=== PATIENT | male | born 1935 | race Caucasian/White ===

== ENCOUNTER 2020-08-13 06:21 | Day surgery (SDC) | payer MEDICARE, BC ==
[2020-08-13] MEDS ORDERED: Rocuronium 50 MG/5 ML Vial IV ONE (06:22)
[2020-08-13] MEDS ORDERED: Propofol 200 MG/20 ML SDV IV ONE (06:22)
[2020-08-13] MEDS ORDERED: Ondansetron 4 MG/2 ML SDV IVPUSH ONE (06:22)
[2020-08-13] MEDS ORDERED: Sugammadex Sodium 200 MG/2 ML VIAL IV ONE (06:22)
[2020-08-13] MEDS ORDERED: Glycopyrrolate 0.2 MG/ML 5 ML MDV IV ONE (06:22)
[2020-08-13] MEDS ORDERED: Lactated Ringers 1,000 ML IV ONE (06:22)
[2020-08-13] MEDS ORDERED: Ketorolac 30 MG/ML SDV IVPUSH ONE (06:22)
[2020-08-13] MEDS ORDERED: Labetalol 100 MG/20 ML MDV IV ONE (06:22)
[2020-08-13] MEDS ORDERED: Succinylcholine 200 MG/10 ML MDV IV ONE (06:22)
[2020-08-13] MEDS ORDERED: Dexamethasone 4 MG/ML 5 ML MDV IVPUSH ONE (06:22)
[2020-08-13] MEDS ORDERED: Midazolam 1 MG/ML 2 ML SDV IV ONE (06:22)
[2020-08-13] MEDS ORDERED: fentaNYL 100 MCG/2 ML SDV IV ONE (06:22)
[2020-08-13] MEDS ORDERED: Lidocaine 2% 100 MG/5 ML Syringe IVPUSH ONE (06:22)
[2020-08-13] MEDS ORDERED: Acetaminophen 1,000 MG/100 ML Infusion Bottle Premix IV ONE (06:22)
[2020-08-13] MEDS ORDERED: Sodium Chloride 0.9% 10 ML Syringe FLUSH PRN (06:45)
[2020-08-13] MEDS ORDERED: Lactated Ringers 1,000 ML IV SCH (06:45)
[2020-08-13] MEDS ORDERED: ceFAZolin 1 GM Vial IVPUSH ONE (08:00)
[2020-08-13] MEDS ORDERED: ceFAZolin 1 GM in Sodium Chloride 0.9% 50 ML IV ONE (08:00)
--- NOTE | 2020-08-13 08:11 | PCM.PN ---
- General Info Date of Service: 08/13/20 - Review of Systems Systems Review Comment:: 85-year-old male here for cholecystectomy. He has history of symptomatic gallstones. He is medically stable to proceed today. His recent history and physical is reviewed and no significant changes are noted. I have again reviewed the proposed procedure with the patient. His questions were answered. He agrees to proceed accepting risks. - Patient Data Vitals - Most Recent: Last Vital Signs Temp 98.2 F 08/13/20 07:17 Pulse 74 08/13/20 07:17 Resp 16 08/13/20 07:17 BP 153/68 H 08/13/20 07:17 Pulse Ox 100 08/13/20 07:17 Weight - Most Recent: 146 lb Med Orders - Current: Current Medications Lactated Ringer's (Ringers, Lactated) 1,000 mls @ 125 mls/hr IV ASDIRECTED TAINA Last Admin: 08/13/20 07:50 Dose: 125 mls/hr Documented by: Sodium Chloride (Saline Flush) 10 ml FLUSH ASDIRECTED PRN PRN Reason: Keep Vein Open Discontinued Medications Cefazolin Sodium (Ancef) 1 gm IVPUSH ONETIME ONE Stop: 08/13/20 08:01 Last Admin: 08/13/20 07:54 Dose: 1 gm Documented by: Sepsis Event Note - Focused Exam Vital Signs: Vital Signs Temp Pulse Resp BP Pulse Ox 08/13/20 07:17 98.2 F 74 16 153/68 H 100 - Problem List Review Problem List Initiated/Reviewed/Updated: Yes - My Orders Last 24 Hours: My Active Orders 08/12/20 11:46 Resuscitation Status Routine 08/13/20 Breakfast Nothing Per Oral Diet [DIET] 08/13/20 06:45 Patient Status [ADT] Routine Patient to Empty Bladder [RC] ASDIRECTED RT Incentive Spirometry [RC] ASDIRECTED Verify Patient Consent Obtain [RC] ASDIRECTED Lactated Ringers [Ringers, Lactated] 1,000 ml IV ASDIRECTED Sodium Chloride 0.9% [Saline Flush] 10 ml FLUSH ASDIRECTED PRN Peripheral IV Insertion Adult [OM.PC] Routine Sequential Compression Device [OM.PC] Routine - Assessment Assessment:: Symptomatic cholelithiasis - Plan Plan:: Cholecystectomy
[2020-08-13] MEDS ORDERED: Bupivacaine 0.5%/EPINEPHrine 1:200,000 50 ML MDV INJECT ONE (08:25)
--- NOTE | 2020-08-13 09:31 | PCM.OPNOTE ---
- General Post-Op/Procedure Note Date of Surgery/Procedure: 08/13/20 Operative Procedure(s): Laparoscopic cholecystectomy Findings: Chronically inflamed gallbladder lower abdominal adhesion Pre Op Diagnosis: Symptomatic Cholelithiasis Post-Op Diagnosis: Same Anesthesia Technique: General ET Tube Primary Surgeon: David Jones Pathology: Gallbladder EBL in mLs: 20 Complications: None Condition: Good
[2020-08-13] MEDS ORDERED: Acetaminophen/HYDROcodone 325-10 MG Tab PO ONE (12:31)
--- NOTE | 2020-08-13 12:58 | OR ---
DATE OF OPERATION: 08/13/2020 SURGEON: David Jones MD PREOPERATIVE DIAGNOSIS: Symptomatic cholelithiasis. POSTOPERATIVE DIAGNOSIS: Symptomatic cholelithiasis. OPERATION PERFORMED: Laparoscopic cholecystectomy. INDICATIONS FOR SURGERY: This 85-year-old male has been having symptoms of abdominal pain and nausea. This has been going on for several months and has resulted in weight loss. The patient has been diagnosed with cholelithiasis and he comes for cholecystectomy. FINDINGS: The patient's gallbladder is somewhat distended and does show evidence of chronic inflammation. The adjacent liver appears normal. There is a single bandlike adhesion to the anterior abdominal wall in the right lower quadrant. No other organ abnormality is seen laparoscopically. DESCRIPTION OF PROCEDURE: The patient was taken to the operating room, given general endotracheal anesthesia, and the abdomen was sterilely prepped and draped. A supraumbilical incision was made. Dissection proceeded down to the underlying fascia, which was incised and the peritoneal cavity was entered under direct visualization. The 12 mm trocar was then carefully advanced into the peritoneal cavity under direct visualization and a 5 mm variable angled laparoscopic camera was inserted. Pneumoperitoneum was achieved with carbon dioxide to a pressure of 15 mmHg. 5 mm trocars were then placed in the subxiphoid midline and in 2 areas of the right abdomen. All trocar sites were infiltrated with Marcaine prior to incision. Intra-abdominal inspection was carried out and attention was turned to the gallbladder. It was secured with grasping forceps placed through the lateral trocars and retracted superiorly and anteriorly. Fatty tissue and peritoneum overlying the cystic duct was cleared until the cystic duct was able to be isolated including its junction with the gallbladder. Additional dissection in the triangle of Calot identified the cystic artery which was doubly clipped and divided. The triangle of Calot was cleared, and with positive identification of the cystic duct, it was milked and doubly clipped and divided near the gallbladder with great care being used to avoid any injury or compromise to the common bile duct. The gallbladder was then dissected free from the undersurface of the liver using the hook cautery device. Once the gallbladder had been completely freed, it was extracted without difficulty through the umbilical trocar site. Reinspection of the gallbladder bed was carried out and the region was copiously irrigated and full hemostasis was assured with the use of cautery. Cautery dissection was then used to separate the band adhesion from the right lower quadrant in order to prevent this from being a future source of problems. With inspection showing no sign of any bleeding or any other complication, the pneumoperitoneum was evacuated and the trocars were removed under direct visualization. The fascia of the umbilical trocar site was closed with a running 0 Vicryl suture. Wounds were irrigated with Betadine and saline solution. Skin incisions approximated with interrupted 4-0 Vicryl. Benzoin and Steri-Strips were applied followed by antibiotic ointment and sterile dressings. The patient was awakened, extubated, and taken from the operating room in satisfactory condition. ESTIMATED BLOOD LOSS: 20 mL. COMPLICATIONS: None. PROGNOSIS: Good. /[id number] ÓSCAR/SARAH
== END 2020-08-13 13:10 ==
LOC: FB.MS 06:21 → FB.SDS 06:21 → FB.MS 10:04 → FB.SDS 13:10
PROVIDERS: ATTEND Surgery
DX: K80.10 Calculus of gallbladder with chronic cholecystitis without obstruction (principal); E78.00 Pure hypercholesterolemia, unspecified; I10 Essential (primary) hypertension; Z79.899 Other long term (current) drug therapy; Z98.890 Other specified postprocedural states; Z87.891 Personal history of nicotine dependence
CPT/HCPCS: 00790; 47562; 88304; 94150; A9270; J0131; J0330; J0690; J1100; J1885; J2250; J2405; J2704; J3010; J3490; J7120; J2001